=== PATIENT | female | born 1965 | race Asian ===

== ENCOUNTER → 2017-06-26 | Day surgery (SDC) | payer OTHER ==
[~2017-06-26] MED LIST: DEXAMETHASONE SOD PHOSPHATE 4 MG/1 ML VIAL ONE; LIDOCAINE HCL/PF 2% SDV 5ML VIAL ONE; MIDAZOLAM HCL 2 MG/2 ML SINGLE DOSE VIAL ONE; ONDANSETRON 4 MG/2 ML VIAL ONE; PROPOFOL 20 ML ONE
--- NOTE | 2017-07-01 17:04 | PATH ---
Surgical Pathology Report Patient Name: GISELA DUMONT [facility]. Rec. #: [id number] /Age/Gender: 1965 (Age: 51) / F Account: [id number] Location: [facility] Taken: 06/26/2017 Received: 06/26/2017 Reported: 07/01/2017 Physicians: Dougie Dillard M.D. Specimen(s) Received A: LEFT BREAST SPECIMEN WITH CALCIFICATONS B: LEFT BREAST SPECIMEN WITHOUT CALCIFICATIONS Clinical History Nonpalpable lesion Mammographic findings: Microcalcification, suspicious Final Diagnosis A. BREAST, LEFT, WITH CALCIFICATIONS, CORE BIOPSY: LOBULAR CARCINOMA IN SITU (LCIS) IN A BACKGROUND OF ATYPICAL DUCTAL HYPERPLASIA, COLUMNAR CELL CHANGES, AND ASSOCIATED MICROCALCIFICATIONS. B. BREAST, LEFT, WITHOUT CALCIFICATIONS, CORE BIOPSY: FOCAL ATYPICAL DUCTAL HYPERPLASIA. SEE PART 1. Comment: Immunohistochemical stain performed and interpreted at [facility], [place] show E-Cadherin shows weak membranous staining, however morphologic features are most compatible with LCIS. P120 staining is pending and will be reported separately. Case seen in interdepartmentally. Electronically Signed Radha Daniels M.D. Addendum Reported: 07/03/2017 Addendum Diagnosis Part A, Immunohistochemical stain performed at [place], [place] ([id number]) and interpreted at [facility], [place] shows P120 have strong cytoplasmic staining, supporting lobular phenotype. Radha Daniels M.D. Gross Description A. Received in formalin labeled "left breast with calcifications," are 3 ga-yellow, cylindrical portions of fibroadipose tissue ranging from 2.1-2.5 cm in length and averaging 0.3 cm in diameter. The specimens are submitted in toto in one cassette. B. Received in formalin labeled "left breast without calcifications," is a 1.9 x 1.5 x 0.3 cm aggregate of multiple ga-yellow, irregular to cylindrical portions of fibroadipose tissue. The formalin is filtered and the specimen is entirely submitted in one cassette. Time to formalin fixation: 5 minutes Total formalin fixation time: Approximately 7 hours. /06/26/2017 [facility]06/26/2017
== END | disposition home or self-care (01) ==
LOC: FMAMMOTONE 10:20
PROVIDERS: ATTEND Surgery Surgical Oncology
PROC: 0HBU3ZX Excision of Left Breast, Percutaneous Approach, Diagnostic (ICD-10-PCS; principal; 2017-06-26)
DX: D05.02 Lobular carcinoma in situ of left breast (principal); R92.1 Mammographic calcification found on diagnostic imaging of breast; N60.92 Unspecified benign mammary dysplasia of left breast
CPT/HCPCS: 19081; 87899; 88305-TC; 88342-TC; A4648

== ENCOUNTER 2017-07-17 07:05 | Day surgery (SDC) | payer OTHER ==
--- NOTE | 2017-07-14 09:24 | HP ---
Admitting History and Physical - Primary Care Physician PCP: Jadiel Lozano - Admission Chief Complaint: left breast atypia and LCIS History of Present Illness: Patient is a 51 yo female with h/o right breast DCIS, (s/p right mastectomy and TRAM reconstruction 03/2006) was noted to have left upper outer calcifications in her mammogram. Patient underwent a stereo core bx on 06/26 which was c/w LCIS and atypia. Patient is now presenting for left breast WE with NL. History Source: Patient Limitations to Obtaining History: No Limitations - Past Medical History Heme/Onc: Yes: Cancer (right breast cancer (2006)) - Past Surgical History Additional Past Surgical History: right mastectomy and sentinel LN bx with TRAM reconstruction 03/2016 - Smoking History Smoking history: Never smoked Home Medications - Allergies Allergies/Adverse Reactions: Allergies Allergy/AdvReac Type Severity Reaction Status Date / Time Penicillins Allergy Verified 07/14/17 09:25 Family Disease History - Family Disease History Family Disease History: CA: Mother (breast cancer at 60 ) Review of Systems - Review of Systems Constitutional: reports: No Symptoms Cardiovascular: reports: No Symptoms Respiratory: reports: No Symptoms Physical Examination Breast(s): Yes: Other (Well healed scars sec to right mastectomy and TRAM without suspicious masses or adenopathy. Left breast without suspicious masses or adenopathy.) Problem List - Problems (1) Lobular carcinoma of left breast Code(s): C50.912 - MALIGNANT NEOPLASM OF UNSPECIFIED SITE OF LEFT FEMALE BREAST (2) Atypical hyperplasia of left breast Code(s): N62 - HYPERTROPHY OF BREAST Assessment/Plan Left breast WE with NL
[2017-07-14 14:35] VITALS: BMI 25.7
[2017-07-17] MEDS ORDERED: ONDANSETRON 4 MG/2 ML VIAL IVPUSH PRN ×2 (08:06→11:27)
[2017-07-17] MEDS ORDERED: oxyCODONE HCL 5 MG TABLET PO PRN ×2 (08:06)
[2017-07-17] MEDS ORDERED: LACTATED RINGERS SOLUTION 1,000 ML IV SCH (08:15)
[2017-07-17] MEDS ORDERED: BUPIVACAINE HCL/PF 2.5 MG/ML - 30 ML VIAL IJ ONE (09:46)
[2017-07-17] MEDS ORDERED: GUM MASTIC/STORAX/MSAL/ALCOHOL 1 DRP DROPSBTL MC ONE (11:04)
[2017-07-17] MEDS ORDERED: KETOROLAC TROMETHAMINE 30 MG/1 ML VIAL IVPUSH PRN (11:27)
[2017-07-17] MEDS ORDERED: DEXTROSE 5%-0.45% SALINE 1,000 ML IV SCH (11:30)
--- NOTE | 2017-07-17 11:47 | OP ---
DATE OF OPERATION: 07/17/2017 PREOPERATIVE DIAGNOSIS: History of right breast cancer status post mastectomy with left lobular carcinoma in situ and atypia. POSTOPERATIVE DIAGNOSIS: History of right breast cancer status post mastectomy with left lobular carcinoma in situ and atypia. Await permanent section. PROCEDURE: Left breast partial mastectomy with mammographic needle localization. ANESTHESIA: Local with IV sedation. COMPLICATIONS: None. PRIMARY SURGEON: Luann Lozano MD CHIEF ORDER DISPATCHER: VINOD Resendiz Briefly, the patient is a 51-year-old female of [place] descent, who has a history of a right breast cancer diagnosed at age 40. At which time, she underwent a right breast mastectomy with sentinel lymph node biopsy and TRAMADOL reconstruction. At that time, she had extensive DCIS with small area of microinvasion and 3 negative nodes, and the DCIS was ER/DE negative. She did well and recently underwent mammography in 2018, showing some new calcifications in the upper outer aspect of the left breast and stereotactic core biopsy performed on June 26, 2017, showed LCIS with some atypical duct hyperplasia. Wide excision was recommended. She was brought in for the procedure on July 17, 2017, through Ambulatory Surgery. She first underwent a needle localization in radiology and was brought to the holding area. In the holding area, site verification was made, and informed consent was obtained. She was brought into the operating room and laid on the OR table in the supine position. Venodynes were placed on the lower extremities. She did not receive any antibiotics given the small nature of the excision. She was given IV sedation, and the left breast was sterilely prepped and draped in usual fashion with the wire prepped in the field. Marcaine 25% was then given directly around the needle localization site, and curvilinear incision was made around the needle localization. Dissection was undertaken around the wire, removing the breast tissue completely from the localization wire. The specimen was oriented with a long lateral, short superior suture, and specimen radiograph showed removal of the clip and some other residual calcifications in question. Hemostasis was achieved, and the wound was then closed with interrupted 2-0 plain suture. The skin was closed using interrupted 3-0 deep dermal Vicryl suture and a running 4-0 subcuticular Biosyn suture. Mastisol and Steri-Strips were applied over the wound with a compressive dressing placed over this. The patient tolerated the procedure well, without difficulty, and will be recovered and discharged home the same day once discharge criteria are met. She is to follow up in the office in 1 week for formal wound pathology check. All sponge and needle counts were correct at the end of the case, and estimated blood loss was minimal. LUANN LOZANO M.D. LANNY/[id number]
[2017-07-17 11:50] VITALS: TEMP 97.4
[2017-07-17 11:59] VITALS: BP 98/70; PULSE 64
--- NOTE | 2017-07-18 10:53 | PATH ---
Surgical Pathology Report Patient Name: GISELA DUMONT [facility]. Rec. #: [id number] /Age/Gender: 1965 (Age: 51) / F Account: [id number] Location: [facility] Taken: 07/17/2017 Received: 07/17/2017 Reported: 07/18/2017 Physicians: Jadiel Lozano M.D. Specimen(s) Received LEFT BREAST WIDE EXCISION Clinical History Wide excision for LCIS/atypia Final Diagnosis LEFT BREAST, WIDE EXCISION WITH WIRE LOCALIZATION: FOCAL ATYPICAL DUCTAL HYPERPLASIA (ADH), ARISING IN A BACKGROUND OF FIBROCYSTIC CHANGES INCLUDING USUAL DUCTAL HYPERPLASIA (UDH), COLUMNAR CELL CHANGE, STROMAL FIBROSIS, DUCTAL DILATATION, CYSTIC APOCRINE METAPLASIA, AND ASSOCIATED CALCIFICATION. CHANGES CONSISTENT WITH PRIOR BIOPSY SITE PRESENT. NO RESIDUAL LOBULAR CARCINOMA IN SITU (LCIS) IDENTIFIED. SMALL FIBROADENOMA PRESENT. Comment: Also see prior specimen [id number]. Electronically Signed Chidi Melo M.D. Gross Description Received in formalin, labeled "left breast wide excision," is a 4.2 x 3.1 x 2.0 cm. ga-yellow, irregular, portion of fibroadipose tissue with a needle localization wire present. There is a short suture marking the superior aspect and a long suture marking the lateral aspect, per the surgeon. There is no skin or nipple present. The specimen is inked as follows: superior and lateral blue; inferior green; medial yellow; anterior red; deep black. The specimen is serially sectioned from lateral to medial. Sectioning reveals yellow adipose tissue and vasquez fibrous tissue with an area consistent with a prior biopsy site with associated marker. Totally sequentially submitted from medial to lateral in 14 cassettes, with section containing biopsy submitted in cassette 6. Time to formalin fixation: 3 minutes Total formalin fixation time: Approximately 11 hours. [facility]/07/17/2017 [facility]/07/17/2017
== END 2017-07-17 12:25 | disposition home or self-care (01) ==
LOC: FASU 07:05
PROVIDERS: ATTEND Surgery Surgical Oncology
PROC: 0HBU0ZZ Excision of Left Breast, Open Approach (ICD-10-PCS; principal; 2017-07-17 10:32)
DX: Z85.3 Personal history of malignant neoplasm of breast (principal); Z90.11 Acquired absence of right breast and nipple; N60.92 Unspecified benign mammary dysplasia of left breast; N60.82 Other benign mammary dysplasias of left breast; N64.89 Other specified disorders of breast; N60.32 Fibrosclerosis of left breast; N60.12 Diffuse cystic mastopathy of left breast
CPT/HCPCS: 19281; 84703; 88307-TC